=== PATIENT | male | born 1960 | race Caucasian/White ===

== ENCOUNTER 2021-07-02 12:57 | Inpatient (IN) | payer OTHER ==
[~2021-07-02] VITALS: Ht 165.1 cm; Wt 75.7 kg
[2021-07-02] VITALS (13 sets, daily range): BP systolic 129–162; BP diastolic 60–95
[2021-07-02 13:16] LABS: ABSOLUTE NEUTROPHILS 5.6 thou/uL (1.4-8.2); BASOPHILS 0.3 % (0.0-2.0); EOSINOPHILS 0.4 % (0.0-3.0); HEMOGLOBIN 14.2 gm/dL (14.0-18.0); LYMPHOCYTES 28.2 % (24.0-44.0); MCH 30.6 pg (26.0-34.0); MCHC 33.8 g/dL (28.0-37.0); MCV 90.5 fL (80.0-100.0); MONOCYTES 6.5 % (1.0-8.0); PLATELET COUNT 207 thou/uL (150-400); POLYS 64.6 % (36.0-66.0); RBC 4.64 mil/uL (4.50-6.00); RDW 13.5 % (10.5-14.5); WBC 8.6 thou/uL (4.0-11.0)
[2021-07-02 13:23] LABS: CALCIUM 9.5 mg/dL (8.5-10.1); CREATININE 1.2 mg/dL (0.7-1.3); POTASSIUM 4.1 mmol/L (3.5-5.1)
[2021-07-02 13:32] LABS: ALBUMIN 4.1 g/dL (3.4-5.0); TOTAL BILIRUBIN 0.5 mg/dL (0.2-1.0); TOTAL PROTEIN 7.7 g/dL (6.4-8.2)
[2021-07-02 13:36] LABS: INR 1.02; PROTIME 11.1 Seconds (10.5-12.1)
--- NOTE | 2021-07-02 15:34 | NUR ---
PT ORIENTED TO ROOM AND UNIT, BED LOW AND LOCKED, SIDE RAILS UP X3, CALL LIGHT IN REACH, TELE APPLIED. RIGHT GROIN CDI WITH NO HEMATOMA. BATTERY CONTAINER INSPECTOR AT BEDSIDE. WILL CONTINUE TO ASSESS.
[2021-07-02 18:28] LABS: ABSOLUTE NEUTROPHILS 5.4 thou/uL (1.4-8.2); BASOPHILS 0.1 % (0.0-2.0); EOSINOPHILS 0.5 % (0.0-3.0); HEMATOCRIT 39.2 % (42.0-52.0); LYMPHOCYTES 28.5 % (24.0-44.0); MCH 30.2 pg (26.0-34.0); MCHC 33.3 g/dL (28.0-37.0); MCV 90.9 fL (80.0-100.0); MONOCYTES 5.8 % (1.0-8.0); PLATELET COUNT 189 thou/uL (150-400); POLYS 65.1 % (36.0-66.0); RBC 4.31 mil/uL (4.50-6.00); RDW 13.4 % (10.5-14.5); WBC 8.3 thou/uL (4.0-11.0)
--- NOTE | 2021-07-02 19:26 | NUR ---
RIGHT GROIN ASSESSED WITH TRINI WYLIE RN. RIGHT GROIN IS CDI WITH NO HEMATOMA.
[2021-07-02] MEDS ORDERED: PIOGLITAZONE15 MG (23:21)
[2021-07-02] MEDS ORDERED: LISINOPRIL10 MG PO (23:22)
[2021-07-02] MEDS ORDERED: METFORMIN HCL500 M3 PO (23:25)
[2021-07-02] MEDS ORDERED: VITAMIN D350 MC3 PO (23:28)
--- NOTE | 2021-07-03 03:47 | NUR ---
Assumed pt care at 1900. Pt is alert and oriented. No sign of distress noted in pt. Pt is stable, laying in bed. Right groin site is intact. Daughter translating for patient. Pt is ambulatory. Assessment completed and documented. Schedule meds administered to pt. Bradycardia noted on the monitor. Blood pressure stable. No acute event through the night. Continue to monitor. No further needs at this time.
[2021-07-03 04:34] VITALS: BP 126/84
[2021-07-03 05:34] LABS: HEMATOCRIT 38.5 % (42.0-52.0); HEMOGLOBIN 13.3 gm/dL (14.0-18.0); MCH 31.1 pg (26.0-34.0); MCHC 34.7 g/dL (28.0-37.0); MCV 89.7 fL (80.0-100.0); RBC 4.29 mil/uL (4.50-6.00); RDW 13.6 % (10.5-14.5); WBC 7.7 thou/uL (4.0-11.0)
[2021-07-03 05:36] LABS: GLYCOHEMOGLOBIN (HGB A1C) 7.1 % (4.8-5.6)
[2021-07-03 05:49] LABS: URINE BILIRUBIN NEGATIVE (Negative); URINE BLOOD NEGATIVE (Negative); URINE CLARITY CLEAR; URINE COLOR YELLOW; URINE GLUCOSE-RANDOM* NEGATIVE (Negative); URINE KETONES NEGATIVE (Negative); URINE LEUKOCYTES-REFLEX NEGATIVE (Negative); URINE NITRITE-REFLEX NEGATIVE (Negative); URINE PROTEIN (DIPSTICK) NEGATIVE (Negative); URINE SPECIFIC GRAVITY <= 1.005 (1.005-1.035); URINE UROBILINOGEN 0.2 E.U./dl (0.2-1.0)
[2021-07-03 06:25] LABS: CALCIUM 8.6 mg/dL (8.5-10.1); CREATININE 0.9 mg/dL (0.7-1.3); POTASSIUM 3.8 mmol/L (3.5-5.1)
[2021-07-03 06:42] LABS: CHOLESTEROL 152 mg/dL (<200); HDL CHOLESTEROL 55 mg/dL (>40); LDL CHOLESTEROL 85 mg/dL (<100); TC:HDL 2.8 Ratio (Not establshd); TRIGLYCERIDE 60 mg/dL (<150); VLDL 12 mg/dL (<40)
[2021-07-03 07:06] VITALS: BP 132/77
--- NOTE | 2021-07-03 09:39 | 2DMMODE ---
[facility] [place] [address] 2 D/M-MODE ECHOCARDIOGRAM Name: PINKY OSWALD Room #: 210-P ADM Eneida Ballard#: [id number] Admission: 07/02/21 Attend Phys: Elan Kinsey MD, Discharge: Date of : 62 Report #: [id number] THIS REPORT FOR: cc: PRISCILA - Lu family physician/PCP PRISCILA - No family physician/PCP Elan Kinsey MD [facility] ~ APPROVED REPORT Study performed: 07/03/2021 08:46:14 EXAM: Comprehensive 2D, Doppler, and color-flow Echocardiogram Patient Location: Bedside Room #: 210 Status: on-call BSA: 1.80 HR: 56 bpm BP: 132/77 mmHg Rhythm: NSR Other Information Study Quality: Good Indications Diabetes CAD Hypertension/HDD Preop for bypass 2D Dimensions RVDd: 29.30 mm IVSd: 11.11 (7-11mm) LVOT Diam: 20.03 (18-24mm) LVDd: 39.93 mm PWd: 11.52 (7-11mm) Ascending Ao: 37.07 (22-36mm) LVDs: 27.76 (25-40mm) Aortic Root: 30.83 mm IVC: 18.00 mm Volumes Left Atrial Volume (Systole) Single Plane 4CH: 30.83 mL Single Plane 2CH: 54.70 mL LA ESV Index: 28.00 mL/m2 Aortic Valve AoV Peak Ryan.: 1.03 m/s AO Peak Gr.: 4.25 mmHg LVOT Max P.08 mmHg [facility] [address] [place] [address] 2 D/M-MODE ECHOCARDIOGRAM Name: OSWALDPINKY Room #: 210-P [facility] IN [facility]#: [id number] Admission: 07/02/21 Attend Phys: Elan Kinsey, Discharge: Date of : 62 Report #: [id number] LVOT Max V: 0.88 m/s SERGIO Vmax: 2.68 cm2 Mitral Valve E/A Ratio: 1.3 MV Decel. Time: 192.62 ms MV E Max Ryan.: 0.73 m/s MV A Ryan.: 0.57 m/s MV PHT: 55.86 ms IVRT: 110.73 ms Pulmonary Valve PV Peak Ryan.: 0.79 m/s PV Peak Gr.: 2.52 mmHg Pulmonary Vein P Vein S: 0.50 m/s P Vein A: 0.37 m/s P Vein D: 0.43 m/s P Vein A Dur.: 103.8 msec P Vein S/D Ratio: 1.16 Tricuspid Valve RAP Estimate: 5.00 mmHg Left Ventricle The left ventricle is normal size. There is normal LV segmental wall motion. Mild concentric left ventricular hypertrophy. The left ventricular systolic function is normal. The left ventricular ejection fraction is within the normal range. LVEF is 50-55% The left ventricular diastolic function is normal. Right Ventricle The right ventricle is normal size. The right ventricular systolic function is normal. Atria The left atrium size is normal. The right atrium size is normal. Aortic Valve The aortic valve is normal in structure. No aortic regurgitation is present. There is no aortic valvular stenosis. Mitral Valve The mitral valve is normal in structure. Trace mitral regurgitation. No evidence of mitral valve stenosis. Tricuspid Valve [facility] [address] [place] [address] 2 D/M-MODE ECHOCARDIOGRAM Name: ASYA OSWALDCHRISS Room #: 210-P [facility] IN M.R.#: [id number] Admission: 07/02/21 Attend Phys: Elan Kinsey, Discharge: Date of : 62 Report #: [id number] The tricuspid valve is normal in structure. There is no tricuspid valve regurgitation noted. Unable to assess PA pressure. Pulmonic Valve The pulmonary valve is normal in structure. There is no pulmonic valvular regurgitation. Great Vessels The aortic root is normal in size. IVC is normal in size and collapses >50% with inspiration. Pericardium There is no pericardial effusion. <Conclusion> The left ventricle is normal size. Mild concentric left ventricular hypertrophy. LVEF is 50-55% subtle distal septal apical hypo The left ventricular diastolic function is normal. The right ventricle is normal size. The left atrium size is normal. The aortic valve is normal in structure. Trace mitral regurgitation. There is no tricuspid valve regurgitation noted. Unable to assess PA pressure. The aortic root is normal in size. There is no pericardial effusion. <ELECTRONICALLY SIGNED> By: Elan Kinsey MD, FACC 07/03/21938 8 8 Elan Kinsey MD, FACC /INF
--- NOTE | 2021-07-03 11:06 | CATHLAB ---
[facility] [place] [address] INVASIVE PROCEDURE REPORT Name: PINKY OSWALD Room #: 210-P ADM Eneida Ballard#: [id number] Admission: 07/02/21 Attend Phys: Elan Kinsey MD, Discharge: Date of : 62 Report #: [id number] THIS REPORT FOR: cc: FAM - No family physician/PCP FAM - No family physician/PCP Elan Kinsey MD [facility] ~ APPROVED REPORT Study performed: 07/02/2021 13:37:29 Patient Details Patient Status: ED Room #: The patient is a 60 year-old male Event Personnel Elan Kinsey Bottom Crane Operator, Valorie Faye RTR, IMAGING TECH Monitor, Juan Best RN RN, Darling Blake RTR Scrub Procedures Performed Art Access - R femoral artery* Left Heart Cath w/or w/o Coronaries 8480312 [facility] Aortogram Abdominal Peripheral Angio 386223 49031 Initial Mod Sed Same Phys/QHP Gr 588595 86120 Mod Sed Same Phys/QHP Ea 127317 Hemostasis w/ Mynx Indication STEMI (>6 hrs to = 12 hrs), Chest pain Procedure Narrative The Right Groin^ was infiltrated with 1% Lidocaine subcutaneous anesthesia. A PINNACLE 6FR Sheath #[id number] sheath was inserted into the RFA^. Coronary angiography was performed using coronary diagnostic catheters. The right coronary system was accessed and visualized with a 6FR 3DRC #[id number] catheter. The left coronary system was accessed and visualized with a JL4 catheter. The left ventricle was accessed and visualized with a PIGTAIL catheter. Left ventriculogram was performed in 30 degree projection. An aortogram of the abdominal aorta was performed. Pre-demployment femoral angiogram was performed . Closure device was deployed with a 6 Fr MYNXGRIP 6/7F #[id number]. The patient tolerated the procedure well and there were no complications associated with the procedure. There was no hematoma. Intraoperative Conscious Sedation [facility] [address] [place] [address] INVASIVE PROCEDURE REPORT Name: CHACHA OSWALDSANTOS Room #: [facility] IN ..#: [id number] Admission: 07/02/21 Attend Phys: Elan Kinsey, Discharge: Date of : 62 Report #: [id number] Sedation start time: 14:09 Case end Time: 15:01 Fentanyl 50 mcg Versed 1 mg Fluoro Time: 5.31 minutes Dose: DAP 3630.70 cGycm2 367 mGy Contrast Type and Amount: Omnipaque 140 ml Hemodynamics The aortic pressure is 135/75 mmHg with a mean of 61 mmHg. The left ventricular pressure is 142/7 mmHg with a mean of mmHg. The left ventricular end diastolic pressure is 24 mmHg. Conclusion #1 The left main mildly disease giving rise to LAD and circumflex. #2 the LAD is a high-grade proximal lesion before septal magnetic testing technician and then 100% occlusion. The mid distal vessel is filled via the right system. This appears to be a chronic total occlusion. #3 first diagonal branch has high-grade lesion and then distally occludes. 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 An acute marginal branch off of the right coronary artery appears providing the collateral filling to the mid distal LAD. #6 normal left ventricular size and systolic function normal 55% with subtle inferior apical hypokinesis. #7 abdominal aortogram reveals mild aortic ectasia calcification but no high-grade disease. I had difficulty crossing the right common iliac lesion which appears to be only in the 70% range we will follow that noninvasively. Recommendations and plan: The patient has had resolve of EKG changes obtained in the catheterization lab. Has brisk flow through the circumflex and RCA either which could have been causing what appeared to be an acute posterior infarct with now resolution of EKG changes. He is pain-free and hemodynamically stable. He has extremely complex and high-grade disease in all 3 vessels. Will need revascularization by bypass surgery. Vascular closure is been placed heparin drip will be initiated to CCU. CTS consult. [place] [address] INVASIVE PROCEDURE REPORT Name: CHACHA OSWALDPOLIMargeCHRISS Room #: 210-P ADM IN M.R.#: [id number] Admission: 07/02/21 Attend Phys: Elan Kinsey, Discharge: Date of : 62 Report #: [id number] vein mapping. IV beta-nelson in the catheterization lab. We will continue with beta-nelson high-dose statin and aspirin. <ELECTRONICALLY SIGNED> By: Elan Kinsey MD, FACC 07/03/215 04 Elan Kinsey MD, FACC /INF
[2021-07-03 11:07] VITALS: BP 142/68
[2021-07-03 15:10] VITALS: BP 143/72
--- NOTE | 2021-07-03 15:57 | NUR ---
PT ALERT AND ORIENTED TIMES FOUR. NON [place] ISLANDER SPECKING. VSS. HEPARIN GTT INFUSING PER PROTOCOL. PT DENEIS PAIN/SOA. PT TOLERATES MEDS AND MEALS PT UP AB IRIS WITH STEADY GAIT. PT NPO AFTER MINDNIGHT FOR SURGERY IN HE MORNING. PT AT BEDSIDE. WILL CONTINUE TO MONITOR.
[2021-07-03 20:29] VITALS: BP 137/84
[2021-07-04] VITALS (18 sets, daily range): BP systolic 89–140; BP diastolic 54–89
--- NOTE | 2021-07-04 07:28 | EKG ---
[address] [address] ELECTROCARDIOGRAM REPORT Name: PINKY OSWALD Room #: 210-[facility] M.R.#: [id number] Admission: 07/02/21 Attend Phys: Elan Kinsey MD, Discharge: Date of : 62 Report #: [id number] [facility] Test Date: 2021-07-02 Test Time: 14:38:31 Pat Name: PINKY OSWALD Department: Room: [facility] Gender: M Director Of Training: ANIA : 1960 Requested By: Elan Kinsey Order Number: [id number] MD: Bandar Clark Measurements Intervals [place] Rate: 72 P: 73 VT: 149 QRS: 74 QRSD: 94 T: -45 QT: 369 QTc: 404 Interpretive Statements Sinus rhythm Nonspecific repol abnormality, diffuse leads Compared to ECG 07/02/2021 13:07:15 Possible ischemia no longer present Electronically Signed On 07-04-2021 7:28:00 CDT by Bandar Clark [email or web address] <ELECTRONICALLY SIGNED> By: Bandar Clark MD, [facility] 07/04/2128 1438 143 Bandar Clark MD, [facility] /EPI
--- NOTE | 2021-07-04 07:28 | EKG ---
[address] [address] ELECTROCARDIOGRAM REPORT Name: PINKY OSWALD Room #: 210-[facility] M.R.#: [id number] Admission: 07/02/21 Attend Phys: Elan Kinsey MD, Discharge: Date of : 62 Report #: [id number] [facility] ED Test Date: 2021-07-02 Test Time: 13:03:04 Pat Name: PINKY OSWALD Department: Room: 210 P Gender: M Car Cooper: AMANDA : 1960 Requested By: Elan Kinsey Order Number: [id number] MD: Bandar Clark Measurements Intervals [place] Rate: 101 P: 67 [place]: 137 QRS: 74 QRSD: 87 T: 188 QT: 284 QTc: 368 Interpretive Statements Sinus tachycardia Repol abnrm, severe global ischemia (LM/MVD) No previous ECG available for comparison Electronically Signed On 07-04-2021 7:27:43 CDT by Bandar Clark [email or web address] <ELECTRONICALLY SIGNED> By: Bandar Clark MD, [facility] 07/04/21 0727 1303 1303 Bandar Clark MD, FACC /EPI
--- NOTE | 2021-07-04 07:28 | EKG ---
[address] [address] ELECTROCARDIOGRAM REPORT Name: PINKY OSWALD Room #: 210-[facility] M.R.#: [id number] Admission: 07/02/21 Attend Phys: Elan Kinsey MD, Discharge: Date of : 62 Report #: [id number] [facility] ED Test Date: 2021-07-02 Test Time: 13:07:15 Pat Name: PINKY OSWALD Department: Room: 210 Gender: M Linux System Admin: LOREE : 1960 Requested By: Delbert Krishnan Order Number: [id number] MD: Bandar Clark Measurements Intervals [place] Rate: 99 P: 68 MN: 142 QRS: 74 QRSD: 86 T: QT: 307 QTc: 394 Interpretive Statements Sinus rhythm Abnormal R-wave progression, late transition Repol abnrm suggests ischemia, diffuse leads No previous ECG available for comparison Electronically Signed On 07-04-2021 7:27:47 CDT by Bandar Clark [email or web address] <ELECTRONICALLY SIGNED> By: Bandar Clark MD, [facility] 07/04/21 0727 1307 130 Bandar Clark MD, FACC /EPI
[2021-07-04 12:37] LABS: PROTIME 16.4 Seconds (10.5-12.1)
[2021-07-04 12:50] LABS: HEMATOCRIT 25.3 % (42.0-52.0); MCHC 34.3 g/dL (28.0-37.0); MCV 90.5 fL (80.0-100.0); RBC 2.79 mil/uL (4.50-6.00); RDW 13.4 % (10.5-14.5); WBC 6.9 thou/uL (4.0-11.0)
[2021-07-04 12:52] LABS: APTT 37.2 Seconds (24.5-32.8); INR 1.54
[2021-07-04 12:54] LABS: HEMOGLOBIN 8.7 gm/dL (14.0-18.0)
[2021-07-04 12:57] LABS: POC BE 3 mmol/L (-2.0 to +3.0); POC CA IONIZED 4.9 mg/dL (4.5-5.3); POC GLUCOSE 184 mg/dL (70-99); POC HCO3 26.1 mmol/L (22.0-26.0); POC HEMOGLOBIN 12.6 g/dL (14.0-18.0); POC POTASSIUM 4.1 mmol/L (3.5-5.1); POC SODIUM 138 mmol/L (136-145); POC pCO2 32.5 mmHg (35.0-45.0); POC pH 7.513 (7.360-7.450)
[2021-07-04 12:57] LABS: POC BE 1 mmol/L (-2.0 to +3.0); POC CA IONIZED 4.9 mg/dL (4.5-5.3); POC GLUCOSE 116 mg/dL (70-99); POC HCO3 25.9 mmol/L (22.0-26.0); POC HEMOGLOBIN 11.9 g/dL (14.0-18.0); POC POTASSIUM 3.7 mmol/L (3.5-5.1); POC SODIUM 140 mmol/L (136-145); POC pCO2 41.9 mmHg (35.0-45.0)
[2021-07-04 12:57] LABS: POC BE 0 mmol/L (-2.0 to +3.0); POC CA IONIZED 4.4 mg/dL (4.5-5.3); POC GLUCOSE 87 mg/dL (70-99); POC HCO3 25.1 mmol/L (22.0-26.0); POC HEMOGLOBIN 9.5 g/dL (14.0-18.0); POC POTASSIUM 4.1 mmol/L (3.5-5.1); POC SODIUM 141 mmol/L (136-145); POC pCO2 43.2 mmHg (35.0-45.0); POC pH 7.373 (7.360-7.450)
[2021-07-04 12:57] LABS: POC BE 1 mmol/L (-2.0 to +3.0); POC CA IONIZED 4.4 mg/dL (4.5-5.3); POC GLUCOSE 147 mg/dL (70-99); POC HCO3 25.7 mmol/L (22.0-26.0); POC HEMOGLOBIN 8.8 g/dL (14.0-18.0); POC POTASSIUM 4.5 mmol/L (3.5-5.1); POC SODIUM 141 mmol/L (136-145); POC pCO2 42.5 mmHg (35.0-45.0)
[2021-07-04 12:57] LABS: POC BE 1 mmol/L (-2.0 to +3.0); POC CA IONIZED 4.4 mg/dL (4.5-5.3); POC GLUCOSE 118 mg/dL (70-99); POC HCO3 25.9 mmol/L (22.0-26.0); POC HEMOGLOBIN 8.8 g/dL (14.0-18.0); POC POTASSIUM 4.5 mmol/L (3.5-5.1); POC SODIUM 140 mmol/L (136-145); POC pCO2 42.6 mmHg (35.0-45.0); POC pH 7.392 (7.360-7.450)
[2021-07-04 12:57] LABS: POC BE 1 mmol/L (-2.0 to +3.0); POC CA IONIZED 4.4 mg/dL (4.5-5.3); POC GLUCOSE 151 mg/dL (70-99); POC HCO3 26.1 mmol/L (22.0-26.0); POC HEMOGLOBIN 8.2 g/dL (14.0-18.0); POC POTASSIUM 4.5 mmol/L (3.5-5.1); POC SODIUM 140 mmol/L (136-145); POC pCO2 43.7 mmHg (35.0-45.0); POC pH 7.383 (7.360-7.450)
[2021-07-04 12:57] LABS: POC BE 0 mmol/L (-2.0 to +3.0); POC CA IONIZED 4.9 mg/dL (4.5-5.3); POC GLUCOSE 124 mg/dL (70-99); POC HCO3 23.7 mmol/L (22.0-26.0); POC HEMOGLOBIN 9.5 g/dL (14.0-18.0); POC POTASSIUM 3.7 mmol/L (3.5-5.1); POC SODIUM 142 mmol/L (136-145); POC pCO2 34.4 mmHg (35.0-45.0); POC pH 7.446 (7.360-7.450)
[2021-07-04 12:57] LABS: POC BE 0 mmol/L (-2.0 to +3.0); POC GLUCOSE 142 mg/dL (70-99); POC HCO3 24.4 mmol/L (22.0-26.0); POC HEMOGLOBIN 8.5 g/dL (14.0-18.0); POC POTASSIUM 3.9 mmol/L (3.5-5.1); POC SODIUM 141 mmol/L (136-145); POC pCO2 36.3 mmHg (35.0-45.0); POC pH 7.435 (7.360-7.450)
--- NOTE | 2021-07-04 13:09 | EKG ---
[address] [address] ELECTROCARDIOGRAM REPORT Name: PINKY OSWALD Room #: 150-5 ADM IN M.R.#: [id number] Admission: 07/02/21 Attend Phys: Elan Kinsey MD, Discharge: Date of : 62 Report #: [id number] [facility] Test Date: 2021-07-03 Test Time: 19:03:54 Pat Name: PINKY OSWALD Department: Room: 150 Gender: M Mfg Assoc: UNKNOWN : 1960 Requested By: Elan Kinsey Order Number: [id number] MD: Claudio Fonseca Measurements Intervals [place] Rate: 54 P: 36 [place]: 136 QRS: 54 QRSD: 94 T: -32 QT: 438 QTc: 416 Interpretive Statements Sinus rhythm Bradycardic rate Nonspecific ST-T wave changes consider digitalis effect Baseline wander in lead(s) II Compared to ECG 07/02/2021 14:38:31 No significant changes Electronically Signed On 07-04-2021 13:08:57 CDT by Claudio Fonseca [email or web address] <ELECTRONICALLY SIGNED> By: Claudio Fonseca MD 07/04/21 1308 1903 1903 Claudio Fonseca MD /EPI
[2021-07-04 13:53] LABS: HEMATOCRIT 31.2 % (42.0-52.0); HEMOGLOBIN 10.6 gm/dL (14.0-18.0); MCH 30.7 pg (26.0-34.0); MCHC 33.9 g/dL (28.0-37.0); MCV 90.4 fL (80.0-100.0); RBC 3.45 mil/uL (4.50-6.00); RDW 13.2 % (10.5-14.5); WBC 10.9 thou/uL (4.0-11.0)
[2021-07-04 14:08] LABS: APTT 31.3 Seconds (24.5-32.8); INR 1.14; PROTIME 12.4 Seconds (10.5-12.1)
[2021-07-04 14:18] LABS: CALCIUM 8.6 mg/dL (8.5-10.1); CREATININE 1.1 mg/dL (0.7-1.3); MAGNESIUM 2.4 mg/dL (1.8-2.4); POTASSIUM 3.8 mmol/L (3.5-5.1)
[2021-07-04 14:30] LABS: HCO3 20.2 mmol/L (22.0-26.0); PCO2 32.4 mmHg (35.0-45.0); PO2 247.8 mmHg (80.0-100.0)
[2021-07-04 14:31] LABS: BE(vivo) -3.6 mmol/L (-2 to +3)
[2021-07-04 14:34] LABS: sO2 99.6 % (92.0-98.0)
--- NOTE | 2021-07-04 15:16 | EKG ---
[address] [address] ELECTROCARDIOGRAM REPORT Name: DAREKPIKNY Room #: 248-P ADM IN M.R.#: [id number] Admission: 07/02/21 Attend Phys: Elan Kinsey MD, Discharge: Date of : 62 Report #: [id number] [facility] Test Date: 2021-07-04 Test Time: 14:40:03 Pat Name: PINKY OSWALD Department: Room: 248 Gender: M Stock Control Supervisor: ZOILA : 1960 Requested By: Kodak Jensen Order Number: [id number] MD: Bandar Clark Measurements Intervals [place] Rate: 69 P: 81 [place]: 141 QRS: 77 QRSD: 90 T: -27 QT: 450 QTc: 482 Interpretive Statements Sinus rhythm Borderline repolarization abnormality Borderline prolonged QT interval Compared to ECG 07/03/2021 19:03:54 ST (T wave) deviation no longer present Electronically Signed On 07-04-2021 15:15:56 CDT by Bandar Clark [email or web address] <ELECTRONICALLY SIGNED> By: Bandar Clark MD, [facility] 07/04/21 1515 1440 1440 Bandar Clark MD, [facility] /EPI
--- NOTE | 2021-07-04 15:55 | HC ---
[facility] [place] [address] CONSULTATION Name: PINKY OSWALD Room #: 248-P ADM IN M.R.#: [id number] Admission: 07/02/21 Attend Phys: Elan Kinsey MD, Discharge: Date of : 62 Report #: [id number] THIS REPORT FOR: cc: FAM - No family physician/PCP FAM - No family physician/PCP Jose Alejandro Deleon MD ~ DATE OF SERVICE: 07/02/2021 We were asked by Dr. Kinsey to see the patient. HISTORY OF PRESENT ILLNESS: The patient is a 60-year-old with unstable angina and myocardial infarct. The patient presents with unstable chest pain today that did not resolve. The patient was seen in the Emergency Department and taken to the analyst microbiology lab where severe 3-vessel coronary artery disease was identified, right coronary has too tight 90+ percent lesions, the circumflex third marginal has a tight lesion. LAD appears to be chronically occluded and fills by left to left collaterals. Left ventricular function appears satisfactory. The patient has had no symptoms of heart failure and no previous symptoms of coronary artery disease. We do note that the patient has recently been diagnosed with diabetes mellitus and is treated for hypertension. The only surgery appears to be a hemorrhoid surgery. ALLERGIES: None known. MEDICATIONS: Metformin and Lipitor. REVIEW OF SYSTEMS: The patient does not speak Romansh, but daughter claims that he has been healthy otherwise. SOCIAL HISTORY: The patient moved from [facility] to [place], [place] approximately 10 years ago where he lives with a daughter, the patient is in town visiting his other daughter when he had chest pain. We note history of smoking, but the patient quit five or six years ago. Follows a largely vegetarian diet. PHYSICAL EXAMINATION: GENERAL: The patient is lying in bed, appears comfortable. VITAL SIGNS: Temperature 36.7, heart rate 74, blood pressure 135/60, pulse ox 100% on room air. HEENT: No scleral icterus. I see no arcus. NECK: No mass, no bruit. CHEST: Clear to auscultation. HEART: Rhythm regular, no murmur. ABDOMEN: Soft, no mass. [facility] [address] [place] [address] CONSULTATION Name: PINKY OSWALD Room #: 248-P [facility] IN M.R.#: [id number] Admission: 07/02/21 Attend Phys: Elan Kinsey MD, Discharge: Date of : 62 Report #: [id number] EXTREMITIES: No clubbing, cyanosis or edema. SKIN: No rash or infection. NEUROLOGIC: No motor or sensory dysfunction. VASCULAR: 2+ dorsalis pedis pulses, 2+ radial pulses. MUSCULOSKELETAL: No obvious bone or joint asymmetry or deformity. PSYCHIATRIC: The patient appears to be oriented and responds appropriately to the extent that he can understand Romansh. ASSESSMENT AND PLAN: I have reviewed the cardiac catheterization findings with the patient and the daughter. I have recommended coronary artery bypass surgery. Risks include but are not limited to bleeding, infection, anesthesia risks, heart and lung problems, stroke and . Options and alternatives were reviewed. The patient and daughter understand and wished to proceed. We will try to arrange for surgery on Sunday. I have discussed the case with Dr. Kinsey. We will continue IV heparin until that time. Thank you for the consult. <ELECTRONICALLY SIGNED> By: Jose Alejandro Deleon MD 07/04/21 1555 29 49 Jose Alejandro Deleon MD /nt
--- NOTE | 2021-07-04 16:39 | NUR ---
PATIENT IN ICU FROM O.R. AT 1330 ON THE VENT AND LIGHTLY SEDATED WITH PRECEDEX. VITALS STABLE, SWAN VANNESA PRESENT NOT IN PLACE, FLOTRAC HOOKED UP. CHEST TUBES, A-LINE, HARRY ON STERNUM, NAINA TO LLE AND TEMP PACEMAKER PRESENT BUT OFF. ASSESSMENT AND GTTS DOCUMENTED. FAMILY IN TO SEE PATIENT. PATIENT NOW MORE AWAKE AND CPAP TRIAL IN PROGRESS.
[2021-07-04 17:22] LABS: BE(vivo) -7.1 mmol/L (-2 to +3); HCO3 17.4 mmol/L (22.0-26.0); PCO2 31.4 mmHg (35.0-45.0); PO2 162.6 mmHg (80.0-100.0); pH 7.361 (7.360-7.450)
--- NOTE | 2021-07-04 17:46 | NUR ---
CPAP SUCCESSFUL AND PATIENT EXTUBATED AT 1740, ON FACE SHIELD AT THIS TIME AND DAUGHTER AT THE BEDSIDE.
--- NOTE | 2021-07-04 20:00 | NUR ---
ASSUMED CARE OF PT. HE SPOKE WITH HIS DAUGHTER. HE UNDERSTANDS SOME SPANISH.
[2021-07-04 21:31] LABS: BE(vivo) -5.7 mmol/L (-2 to +3); HCO3 18.5 mmol/L (22.0-26.0); PCO2 31.4 mmHg (35.0-45.0); PO2 134.2 mmHg (80.0-100.0); pH 7.388 (7.360-7.450); sO2 98.7 % (92.0-98.0)
[2021-07-05] VITALS (17 sets, daily range): BP systolic 99–161; BP diastolic 55–87
[2021-07-05 05:20] LABS: CALCIUM 8.3 mg/dL (8.5-10.1); CREATININE 1.1 mg/dL (0.7-1.3); POTASSIUM 3.9 mmol/L (3.5-5.1)
[2021-07-05 05:25] LABS: HEMATOCRIT 27.7 % (42.0-52.0); HEMOGLOBIN 9.7 gm/dL (14.0-18.0); MCH 31.7 pg (26.0-34.0); MCHC 34.8 g/dL (28.0-37.0); MCV 90.9 fL (80.0-100.0); RBC 3.05 mil/uL (4.50-6.00); RDW 13.5 % (10.5-14.5); WBC 11.8 thou/uL (4.0-11.0)
--- NOTE | 2021-07-05 06:00 | NUR ---
PT AWAKE AND ALERT BATHED. UP TO CARDIAC CHAIR. VERY STRONG ON HIS FEET. VSS SINUS RHYTHM. LUNGS REMAIN DIMINISHED AND ESS CLEAR. PT HAS BEEN ON ROOM AIR SINCE 2200 LAST NIGHT. O2 SAT 98% CHEST INCISION INTACT WITH HARRY DSG LEFT LEG DRESSING INTACT. MEDS AND PLEURAL CHEST TUBES INTACT. TOTAL OF 320 CC FROM MEDS AND ZERO FROM PLEURAL TUBE. 500 CC UO THIS SHIFT. PULSES INTACT. CO 5.8 CI 2.9 A VERY DELIGHTFUL GENTLEMAN. PROGRESSING TOWARD GOALS. WILL CONT TO MONITOR. MG IV AT 40/HR AND AMIO AT 23 CC/HR INSULIN GTT 2 UNITS.
--- NOTE | 2021-07-05 08:03 | NUR ---
Nutrition: Consult received stating diet instruction. pt S/P CABG x 6. RD to followup closer to D/C to assess education needs.
--- NOTE | 2021-07-05 09:12 | NUR ---
Chart review, discussed during am unite rounds. pod # 1 CABG x 6. Unable to visit with daughter at bedside r/t others bedside staff assist patient. Will cont following as needed for dc needs.
--- NOTE | 2021-07-05 11:53 | NUR ---
0730-ASSUMED CARE OF PT.--VW 0800- & LENO LOPEZ,IN.PT OOB TO CHAIR ~0730 W ASSIST OF 2 (ANALOG CIRCUIT DESIGNER).--VW 1130-AMANDA W VERY PEAKED WAVEFORM. LINE TOTALLY CHANGED EARLIER. AMANDA READING 50-60 POINTS HIGHER THAN CUFF. PT LOOKS COMFORTABLE,DENIES PAIN (I WILL TELL YOU WHEN I HAVE PAIN,PER DTR). NO HERNANDEZ. SPOKE W AUDELIA HUANG,HAT CUTTER, RE:HIGH AMANDA READING. CARDENE NOT RESTARTED, WILL WAIT FOR (SHOULD BE OUT OF SURGERY SHORTLY) TO DECIDE, PER AUDELIA.--VW 1155-BACK TO BED W MIN ASSIST X2 (MOSTLY TUBE CONTROL). PT POPPED UP FROM CHAIR,SETTLED SELF IN BED. IS DOING I.S. p INSTRUCTION EARLIER, 500-800ML X6, UP TO 1 LITER X2 AT FIRST ATTEMPT. SPLINTING WELL.POOR COUGH. MESSAGE LEFT FOR REJECT OPENER AND FILLER TO HELP W MEAL SELECTION WHILE DTR HERE. WAITING FOR LUNCH.--VW
[2021-07-06 00:26] VITALS: BP 115/59
[2021-07-06 02:15] VITALS: BP 120/66
[2021-07-06 03:41] VITALS: BP 114/60
[2021-07-06 05:45] LABS: HEMATOCRIT 28.8 % (42.0-52.0); HEMOGLOBIN 9.9 gm/dL (14.0-18.0); MCH 31.4 pg (26.0-34.0); MCHC 34.3 g/dL (28.0-37.0); MCV 91.5 fL (80.0-100.0); RBC 3.15 mil/uL (4.50-6.00); RDW 13.6 % (10.5-14.5); WBC 13.2 thou/uL (4.0-11.0)
[2021-07-06 06:10] LABS: ALBUMIN 3.3 g/dL (3.4-5.0); CALCIUM 7.9 mg/dL (8.5-10.1); CREATININE 0.9 mg/dL (0.7-1.3); POTASSIUM 3.9 mmol/L (3.5-5.1); TOTAL BILIRUBIN 0.8 mg/dL (0.2-1.0); TOTAL PROTEIN 6.4 g/dL (6.4-8.2)
--- NOTE | 2021-07-06 09:00 | NUR ---
PT WENT IN AFIB RVR AT 0800 , HR 150-170. CARDIZEM DRIPPED STARTED PER [facility].
--- NOTE | 2021-07-06 09:53 | NUR ---
Nutrition: pt post op CABG. Follows partly vegetarian diet, will not eat meat other than fish. Will eat yogurt, eggs. RD obtained further food preferences with dtr being used as translator and interpreter, Pt non croatian speaking. Adusting diet order and adding carb controlled. BG 154-248. Appetite low at present post op. Agrees to one glucerna daily. No recent weight loss. Pt/dtr with good understanding of heart healthy, carb controlled diet. No education needs. Place as low risk with interventions in place.
[2021-07-07 17:02] VITALS: BP 137/74
--- NOTE | 2021-07-07 17:10 | O ---
[facility] [place] [address] OPERATIVE REPORT Name: PINKY OSWALD Room #: 248-P ADM IN M.R.#: [id number] Admission: 07/02/21 Attend Phys: Elan Kinsey MD, Discharge: Date of : 62 Report #: [id number] THIS REPORT FOR: cc: FAM - No family physician/PCP FAM - No family physician/PCP Jose Alejandro Deleon MD ~ DATE OF SERVICE: 07/04/2021 PREOPERATIVE DIAGNOSIS: Coronary artery disease. POSTOPERATIVE DIAGNOSIS: Coronary artery disease. OPERATION: Coronary artery bypass x6 including left internal mammary artery to left anterior descending artery, saphenous vein to diagonal, marginal 2, and marginal 3, and saphenous vein to posterior descending and posterolateral branches of the right coronary artery and endoscopic harvest, left greater saphenous vein. SURGEON: Jose Alejandro Deleon MD OUTCOME ANALYST: LENO Del Rosario. ANESTHESIA: General. INDICATIONS: The patient is a 60 years old, visiting [place] from [place]. The patient developed unstable angina and had evidence for myocardial infarct. Catheterization demonstrates severe 3-vessel coronary disease with chronic occlusion of the left anterior descending and diagonal arteries and posterior descending artery as well as critical lesions in the right coronary and in the marginal system. Left ventricular function is satisfactory. FINDINGS AND TECHNIQUE: After general anesthesia was established, saphenous vein was harvested and prepared for use as a conduit. Exposure was obtained through median sternotomy. Left internal mammary artery was harvested from chest wall. Pericardial well was made. Cannulation sutures were placed. Heparin was given. Aorta was cannulated. Right atrium was cannulated. Cardioplegia needle was positioned in the aortic root. Retrograde cardioplegia catheter was placed in the coronary sinus. Cardiopulmonary bypass was established. Aorta was cross clamped. Antegrade and retrograde cardioplegia were given. Ice was poured into the pericardial well. The heart was stopped. During electromechanical arrest, the distal anastomoses were performed. An end-to-side anastomosis was made between vein and the posterolateral lateral [facility] [address] [place] [address] OPERATIVE REPORT Name: PINKY OSWALD Room #: 248-[facility] IN .R.#: [id number] Admission: 07/02/21 Attend Phys: Elan Kinsey MD, Discharge: Date of : 62 Report #: [id number] branch of the right coronary. Cold cardioplegia was given. The same segment of vein was sewn in xfka-yc-aern fashion to the posterior descending branch of the right coronary. Cold cardioplegia was given. A separate segment of vein was sewn in end-to-side fashion to be critically narrowed. A third marginal artery, cold cardioplegia was given. The same segment of vein was sewn in erjh-gl-fgga fashion to the second marginal. Cold cardioplegia was given. The same segment of vein was sewn in dnjq-sz-zivy fashion to large, but diffusely diseased diagonal artery. Cold cardioplegia was given. Left internal mammary artery was sewn in end-to-side fashion to the left anterior descending artery. This was a diffusely diseased vessel. The anastomosis was checked with the temperature technique and the Doppler. Cold cardioplegia was given. Two Proximal anastomoses were performed. When these were complete, warm retrograde cardioplegia was given followed by warm continuous blood to the coronary sinus. When this infusion was complete, the crossclamp was removed. Deairing maneuvers were performed and anastomoses were inspected and found to be satisfactory. As the patient warmed, nice cardiac activity resumed, chest tubes and pacing wires were placed. A marker was placed around the proximal anastomoses. When the patient was warm, he was weaned from cardiopulmonary bypass. Venous cannula was removed. Protamine was given, the aortic cannula was removed. Flows were measured in the bypass grafts. When hemostasis was satisfactory, chest was irrigated with antibiotic solution and closed in the usual fashion. The patient was taken to the Intensive Care Unit in good condition having tolerated the procedure well. All counts were reported as correct. <ELECTRONICALLY SIGNED> By: Jose Alejandro Deleon MD 07/07/21 1710 1543 1848 Jose Alejandro Deleon MD /nt
--- NOTE | 2021-07-07 17:41 | NUR ---
VARIOUS FAMILY AT BEDSIDE THROUGHOUT THE DAY. ANSWERED ALL QUESTION PER POC. BETINA BURR AT BEDSIDE AT 0930. DISCHARGE ORDERS GIVEN. DR. MESSINA AT BEDSIDE 1600. NO NEW ORDERS GIVEN. PT PROGRESSING TOWARDS GOALS PER ORDERS TO TRANSFER TO STEP DOWN.
[2021-07-07 20:15] VITALS: BP 134/74
[2021-07-07 20:45] VITALS: BP 135/75
[2021-07-07 22:15] VITALS: BP 133/79
[2021-07-07 23:15] VITALS: BP 126/78
[2021-07-08] VITALS (15 sets, daily range): BP systolic 109–146; BP diastolic 68–81
[2021-07-08 04:55] LABS: ALBUMIN 2.8 g/dL (3.4-5.0); CALCIUM 8.2 mg/dL (8.5-10.1); POTASSIUM 3.4 mmol/L (3.5-5.1); TOTAL BILIRUBIN 0.6 mg/dL (0.2-1.0); TOTAL PROTEIN 6.4 g/dL (6.4-8.2)
[2021-07-08 05:02] LABS: ABSOLUTE NEUTROPHILS 7.3 thou/uL (1.4-8.2); BASOPHILS 0.2 % (0.0-2.0); EOSINOPHILS 1.3 % (0.0-3.0); HEMATOCRIT 26.9 % (42.0-52.0); HEMOGLOBIN 9.3 gm/dL (14.0-18.0); LYMPHOCYTES 17.1 % (24.0-44.0); MCH 31.6 pg (26.0-34.0); MCHC 34.6 g/dL (28.0-37.0); MCV 91.4 fL (80.0-100.0); MONOCYTES 10.6 % (1.0-8.0); PLATELET COUNT 193 thou/uL (150-400); POLYS 70.8 % (36.0-66.0); RBC 2.94 mil/uL (4.50-6.00); RDW 13.5 % (10.5-14.5); WBC 10.3 thou/uL (4.0-11.0)
--- NOTE | 2021-07-08 07:27 | EKG ---
[address] [address] ELECTROCARDIOGRAM REPORT Name: DAREKJORDINMargeCHRISS Room #: 248-P ADM IN M.R.#: [id number] Admission: 07/02/21 Attend Phys: Elan Kinsey MD, Discharge: Date of : 62 Report #: [id number] [facility] ED Test Date: 2021-07-08 Test Time: 01:58:16 Pat Name: PINKY OSWALD Department: Room: 248 P Gender: M Mold Worker: david : 1960 Requested By: Kodak Jensen Order Number: [id number] MD: Bandar Clark Measurements Intervals [place] Rate: 78 P: 78 CT: 153 QRS: 88 QRSD: 88 T: 19 QT: 386 QTc: 440 Interpretive Statements Sinus rhythm Compared to ECG 07/04/2021 14:40:03 No significant changes Electronically Signed On 07-08-2021 7:26:44 CDT by Bandar Clark [email or web address] <ELECTRONICALLY SIGNED> By: Bandar Clark MD, [facility] 07/08/21 0726 0158 0158 Bandar Clark MD, FACC /EPI
--- NOTE | 2021-07-08 11:00 | H ---
[facility] [place] [address] [address] [place] [address] HISTORY AND PHYSICAL Name: PINKY OSWALD Room #: 248-P ADM IN M.R.#: [id number] Admission: 07/02/21 Attend Phys: Elan Kinsey MD, Discharge: Date of : 62 Report #: [id number] THIS REPORT FOR: cc: FAM - No family physician/PCP FAM - No family physician/PCP Elan Kinsey MD [facility] ~ DATE OF SERVICE: 07/02/2021 HISTORY OF PRESENT ILLNESS: A 60-year-old male who is visiting family from [place], [place]. It sounds like he may have moved from [facility] a few years ago. He does not have documented coronary disease, but proceeded with intermittent chest discomfort and some diaphoresis. The initial EKG suggested either significant anterior lateral ischemia or an acute posterior infarct. Heparin, aspirin, and Lipitor 80 mg were given in the Emergency Room. That did significantly help his discomfort. He is being taken emergently to the catheterization lab here, which has revealed and looks to be a chronically LAD, which is well collateralized. Looks to be a high-grade subtotal tandem lesions in the mid distal right coronary artery, which is dominant and extensive circumflex system, which has a first OM, which may be occluded, but probably small. The third OM is high-grade lesion and could also be responsible for the EKG changes, although there is STEVEN grade III flow through the stenosis and the RCA stenosis. The LAD is collateralized. The LV function shows nearly preserved LV function with EF 50-55%. His only home medications were metformin and lisinopril. He does not speak a lot of Uzbek. His daughter and son-in-law were helping with translation. PAST MEDICAL HISTORY: Positive for hemorrhoid surgery, hypertension and recently diagnosed diabetes. SOCIAL HISTORY: I believe one daughter and he currently resides in [place], [place]. He is here visiting. Quit tobacco five to six years ago, was a pack a day smoker. No significant alcohol use. He is retired and . FAMILY HISTORY: Negative for premature coronary artery disease. REVIEW OF SYSTEMS: Really not obtainable. PHYSICAL EXAMINATION: GENERAL: He is currently pain free. VITAL SIGNS: Blood pressure 142/72, pulse 70. EYES: No xanthelasmas. Pharynx is clear. NECK: Shows preserved upstrokes without JVD. There may be a faint right-sided bruit. LUNGS: Clear anteriorly. HEART: Regular rate and rhythm, S1, S2. ABDOMEN: Soft, no HSM, abdominal bruit. [facility] [address] [place] [address] HISTORY AND PHYSICAL Name: PINKY OSWALD Room #: [address] [place] [address] IN M.R.#: [id number] Admission: 07/02/21 Attend Phys: Elan Kinsey MD, Discharge: Date of : 62 Report #: [id number] EXTREMITIES: Reveals intact distal pulses slight diminished. The femoral pulses are 2-3+ on the left, 2+ on the right. SKIN: Warm and dry without xanthoma or ulcer. MUSCULOSKELETAL: No gross joint deformity. IMPRESSION: 1. Predominantly aborted acute posterior infarct with current STEVEN grade III flow in right coronary artery and OM3, which could be culprit secondary to heparin and collateralized and chronically occluded left anterior descending. 2. Mild ischemic cardiomyopathy, ejection fraction near normal 50-55%. 3. Hypertension. 4. Diabetes. 5. Prior tobacco use. RECOMMENDATIONS AND PLAN: We will place a closure device in the right femoral artery without complication. We will initiate heparin drip without a bolus. We will transfer to the CCU in stable condition. His chest pain has resolved and I did repeat an EKG in the labor delivery specialist, which has resolution of the ST depression that was noted laterally and quite prominent. I have discussed with CT surgery. We will obtain a carotid Doppler and echo and proceed with surgery on Sunday morning. This is currently Sunday afternoon as long as he remained stable and pain free. This has been discussed with his family who will relay this to the patient. We will also obtain lipid profile and hemoglobin A1c in the morning. He did not receive antiplatelet in the Emergency Room. We will continue aspirin, statin, and beta nelson. <ELECTRONICALLY SIGNED> By: Elan Kinsey MD, FACC 07/08/21 1100 1348 1434 Elan Kinsey MD, FACC /nt
--- NOTE | 2021-07-08 13:43 | NUR ---
Dx CABG x 6, Discussed during with bedside nurse, ccu orders. Noted he is current on room air. Daughter at bedside. No anticipated needs at dc. Family will transport him home at dc.
--- NOTE | 2021-07-08 13:46 | NUR ---
ASSUMED CARE OF PT AT 0700. FAMILY AT BEDSIDE THROUGHOUT THE DAY. ANSWERED QUESTIONS AND EXPLAINED CARES GIVEN.
--- NOTE | 2021-07-08 15:41 | NUR ---
CALLED PT DAUGHTER, LV AT 1530 TO NOTIFY OF DISCHARGE ORDERDS BEING PLACED. SHE STATED THAT SHE WOULD COME TO THE [facility] TO RECIEVE DISCHARGE INSTRUCTONS.
[2021-07-08] MEDS ORDERED: PACERONE 200 M200 M1 PO (16:44)
[2021-07-08] MEDS ORDERED: FERREX 150 PLU1 EAC1 PO (16:44)
[2021-07-08] MEDS ORDERED: LIPITOR40 MG PO (16:44)
[2021-07-08] MEDS ORDERED: METOPROLOL SUCC50 MG PO (16:48)
[2021-07-08] MEDS ORDERED: ASA81BEC PO (16:48)
--- NOTE | 2021-07-11 09:25 | D ---
[facility] [address] [place] [address] DISCHARGE SUMMARY Name: PINKY OSWALD Room #: 248-P [facility] IN M.R.#: [id number] Admission: 07/02/21 Attend Phys: Elan Kinsey MD, Discharge: 07/08/21 Date of : 62 Report #: [id number] THIS REPORT FOR: cc: FAM - No family physician/PCP FAM - No family physician/PCP Elan Kinsey MD [facility] ~ DATE OF SERVICE: 07/08/2021 HOSPITAL COURSE: The patient is a 60-year-old male who had been visiting his daughter here. He lives in [place], [place]. When he had significant onset of chest pain, pressure and some ST, looked to be an acute posterior infarct. He was given heparin, aspirin and Lipitor in the ER and taken to the catheterization lab. I had patency of a distal OM, which could have been culprit and a distal right, which could have been the culprit for posterolateral purposes and an LAD that was collateralized from the left and right system. That looked to be chronic, but the LV function was preserved. He had resolution of his EKG changes with heparin, so no intervention was undertaken in the catheterization lab as he needed revascularization by bypass operation. He subsequently stabilized and went to bypass, six-way. A WHEELER to an LAD, SVG to a diagonal, OM2 and OM3; and an SVG to a PDA and posterolateral branch. He did well postoperatively. His diabetes was well managed; stents have been continued. He had AFib with RVR, but now in sinus rhythm, on amiodarone. He also is on Toprol 50, and amiodarone we will discharge him for a month, his statin - atorvastatin 40, aspirin, Pepcid p.r.n., and his pain medications per CT surgery, also his insulin recommendations. <ELECTRONICALLY SIGNED> By: Elan Kinsey MD, FACC 07/11/21 0925 1607 08 Elan Kinsey MD, FACC /nt
--- NOTE | 2021-07-11 09:25 | D ---
[facility] [address] [place] [address] DISCHARGE SUMMARY Name: PINKY OSWALD Room #: 248-P [facility] IN M.R.#: [id number] Admission: 07/02/21 Attend Phys: Elan Kinsey MD, Discharge: 07/08/21 Date of : 62 Report #: [id number] THIS REPORT FOR: cc: FAM - No family physician/PCP FAM - No family physician/PCP Elan Kinsey MD [facility] ~ DATE OF SERVICE: 07/08/2021 ADDENDUM This is a continuation of the discharge summary on the patient. Metformin 1000 b.i.d., no insulin. He has instructions for CT surgery, right upper extremity usage. He will be able to up and ambulate 10 minutes twice a day. He has followup with surgery for bandage removal in 72 hours. He will see me in 3 weeks. He will be staying with his daughter until he returns to [place], [place] in approximately 1 month. Low fat, low sodium, cholesterol diet. Activity to be instructed as tolerated. DISCHARGE DIAGNOSES: 1. Non-STEMI with an aborted acute posterior infarct. 2. Coronary artery bypass surgery for complete revascularization, ____ bypass noted. See above. 3. Mild ischemic cardiomyopathy, EF 50-55%. Expect this to improve and normalize completely. 4. Paroxysmal atrial fibrillation postop. We will continue on amiodarone in the short term. 5. Diabetes. 6. Hypertension. 7. Hypercholesterolemia. 8. Tobacco use, which he has stopped. He will also continue with his Actos. Thank you for allowing to assist in the care of this patient. <ELECTRONICALLY SIGNED> By: Elan Kinsey MD, FACC 07/11/21 0925 1610 07 Elan Kinsey MD, FACC /nt
== END 2021-07-08 18:00 | disposition home or self-care (01) | DRG 233 ==
LOC: ER 12:57 → 2N 13:55 → ER 14:11 → TBA 14:11 → 2N 15:24 → TBA 07-04 10:54 → ICU 07-04 13:45
PROVIDERS: Emergency Medicine; Physician Assistant; Surgery Vascular Surgery; ADMIT Internal Medicine Cardiovascular Disease; ATTEND Internal Medicine Cardiovascular Disease
PROC: 4A023N7 Measurement of Cardiac Sampling and Pressure, Left Heart, Percutaneous Approach (ICD-10-PCS; principal; 2021-07-02)
PROC: B2111ZZ Fluoroscopy of Multiple Coronary Arteries using Low Osmolar Contrast (ICD-10-PCS; principal; 2021-07-02)
PROC: B41D1ZZ Fluoroscopy of Aorta and Bilateral Lower Extremity Arteries using Low Osmolar Contrast (ICD-10-PCS; principal; 2021-07-02)
PROC: 4A133B1 Monitoring of Arterial Pressure, Peripheral, Percutaneous Approach (ICD-10-PCS; 2021-07-04)
PROC: 03HY32Z Insertion of Monitoring Device into Upper Artery, Percutaneous Approach (ICD-10-PCS; 2021-07-04)
PROC: 0210099 Bypass Coronary Artery, One Artery from Left Internal Mammary with Autologous Venous Tissue, Open Approach (ICD-10-PCS; 2021-07-04)
PROC: 06BQ0ZZ Excision of Left Saphenous Vein, Open Approach (ICD-10-PCS; 2021-07-04)
PROC: 021309W Bypass Coronary Artery, Four or More Arteries from Aorta with Autologous Venous Tissue, Open Approach (ICD-10-PCS; 2021-07-04)
PROC: 5A1221Z Performance of Cardiac Output, Continuous (ICD-10-PCS; 2021-07-04)
PROC: 30233N1 Transfusion of Nonautologous Red Blood Cells into Peripheral Vein, Percutaneous Approach (ICD-10-PCS; 2021-07-04)
PROC: 4A133J1 Monitoring of Arterial Pulse, Peripheral, Percutaneous Approach (ICD-10-PCS; 2021-07-04)
DX: I25.110 Atherosclerotic heart disease of native coronary artery with unstable angina pectoris (principal); I21.29 ST elevation (STEMI) myocardial infarction involving other sites; D62 Acute posthemorrhagic anemia; E11.9 Type 2 diabetes mellitus without complications; I10 Essential (primary) hypertension; I25.5 Ischemic cardiomyopathy; I48.0 Paroxysmal atrial fibrillation; E78.00 Pure hypercholesterolemia, unspecified; E78.5 Hyperlipidemia, unspecified; Z20.822 Contact with and (suspected) exposure to COVID-19; Z87.891 Personal history of nicotine dependence
CPT/HCPCS: 10078; 10081; 47000; 47001; 47002; 47297; 48889; 50010; 50011; 50249; 50668; 51301; 52259; 52287; 53327; 53358; 54118; 56455; 56524; 56525; 56526; 56527; 56528; 56531; 56534; 56668; 56719; 56760; 56898; 57093; 57167; 58585; 58856; 58901; 58918; 62110; 62950; 65003; 65020; 65040; 65120; 65135